=== PATIENT | female | born 1960 | race Caucasian/White ===

== ENCOUNTER 2017-12-21 18:00 | Emergency (ER) | payer SELFPAY ==
--- NOTE | 2017-12-21 18:13 | ER Report ---
History and Physical Time Seen By MD: 18:12 Hx. of Stated Complaint: "KIDNEY STONE" LEFT FLANK PAIN THAT STARTED ABOUT 2:30. THOUGHT SHE WAS FIGHTING A UTI HPI/ROS CHIEF COMPLAINT: left flank pain HISTORY OF PRESENT ILLNESS: This is a 57 year old female. She had left flank pain, severe, started 1430 today. Has had some nausea, and a few episodes of vomiting. Pain worsens with moving and standing. No fevers. Has some pain with urination, but no blood or dark color. Drinking increased fluids today. Never had a kidney stone in the past. Pain does radiate around to left lower area a little. No problems with bowels. Allergies: Coded Allergies: Sulfa (Sulfonamide Antibiotics) (Verified Allergy, Intermediate, 12/21/17) RASH, CLOSED UP THROAT Home Meds Active Scripts Ondansetron (ZOFRAN ODT) 4 Mg Tab.rapdis, 4 MG PO Q6H Y for NAUSEA/VOMITING, # 20 TAB.OMAR 0 Refills Prov:MIRIAM MARIE MD 12/21/17 Ketorolac Tromethamine (KETOROLAC TROMETHAMINE) 10 Mg Tab, 10 MG PO Q6H Y for PAIN, #12 TAB 0 Refills Prov:MIRIAM MARIE MD 12/21/17 Oxycodone Hcl/Acetaminophen (PERCOCET 5-325 MG TABLET) 1 Each Tablet, 1 EACH PO Q4H Y for PAIN, #12 TAB 0 Refills Prov:MIRIAM MARIE MD 12/21/17 Tamsulosin Hcl (FLOMAX) 0.4 Mg Cap.er.24h, 0.4 MG PO QDAY, #14 CAP 0 Refills Prov:MIRIAM MARIE MD 12/21/17 Reviewed Nurses Notes: Yes Constitutional Vital Sign - Last 24 Hours 12/21/17 12/21/17 12/21/17 12/21/17 18:07 18:08 18:15 18:30 Temp 98.1 Pulse 84 77 91 Resp 16 B/P (MAP) 144/101 144/101 (115) 144/90 (108) Pulse Ox 99 99 100 O2 Delivery Room Air 12/21/17 12/21/17 12/21/17 12/21/17 18:45 18:47 19:14 19:20 Pulse 77 72 B/P (MAP) 124/73 (90) Pulse Ox 100 99 O2 Flow Rate 2.0 12/21/17 12/21/17 12/21/17 12/21/17 19:30 19:35 19:50 20:00 Pulse 81 B/P (MAP) 123/72 (89) 129/73 (91) Pulse Ox 100 98 Intake and Output 12/21/17 12/21/17 12/22/17 15:00 23:00 07:00 Intake Total 1000 ml Balance 1000 ml Physical Exam General Appearance: The patient is alert, no acute distress. Eyes: Pupils equal and round ENT: Normal oral mucosa. Moist mucous membranes. Respiratory: Lungs are clear to auscultation. Cardiac: regular rate and rhythm, without murmurs. Gastrointestinal: Abdomen is soft and non tender, bowel sounds normal, left CVA tenderness. Musculoskeletal: Extremities have full range of motion. DIFFERENTIAL DIAGNOSIS: After history and physical exam differential diagnosis was considered for left flank pain. Medical Decision Making Data Points Result Diagram: 12/21/17 1845 12/21/17 1845 Laboratory Hematology Test 12/21/17 18:04 12/21/17 18:45 Urine Color Yellow Urine Clarity Cloudy Urine pH 5.0 pH (4.8-9.5) Urine Specific [place] 1.023 Urine Protein Negative mg/dL (NEGATIVE) Urine Glucose (UA) Negative mg/dL (NEGATIVE) Urine Ketones 80 mg/dL (NEGATIVE) Urine Blood Negative (NEGATIVE) Urine Nitrite Negative (NEGATIVE) Urine Bilirubin Negative (NEGATIVE) Urine Urobilinogen Negative mg/dL (0.2-1.9) Urine Leukocyte Esterase Moderate (NEGATIVE) Urine RBC 9 /HPF (0-2/HPF) Urine WBC 32 /HPF (0-5/HPF) Urine Squamous Epithelial Cells Many /LPF (</=FEW) Urine Calcium Oxalate Crystals Many /HPF (NONE) Urine Bacteria Negative /HPF (NONE-FEW) Urine Hyaline Casts Few /LPF (NONE-FEW) Urine Mucus None /HPF (NONE-FEW) Red Blood Count 4.34 M/uL (4.17-5.56) Mean Corpuscular Volume 88.3 fL (80.0-96.0) Mean Corpuscular Hemoglobin 30.9 pg (26.0-33.0) Mean Corpuscular Hemoglobin Concent 35.0 g/dL (32.0-36.0) Red Cell Distribution Width 13.0 % (11.5-14.5) Mean Platelet Volume 7.7 fL (7.2-11.1) Neutrophils (%) (Auto) 84.5 % (39.4-72.5) Lymphocytes (%) (Auto) 9.8 % (17.6-49.6) Monocytes (%) (Auto) 4.9 % (4.1-12.4) Eosinophils (%) (Auto) 0.1 % (0.4-6.7) Basophils (%) (Auto) 0.7 % (0.3-1.4) Nucleated RBC Relative Count (auto) 0.0 /100WBC Neutrophils # (Auto) 9.1 K/uL (2.0-7.4) Lymphocytes # (Auto) 1.1 K/uL (1.3-3.6) Monocytes # (Auto) 0.5 K/uL (0.3-1.0) Eosinophils # (Auto) 0.0 K/uL (0.0-0.5) Basophils # (Auto) 0.1 K/uL (0.0-0.1) Nucleated RBC Absolute Count (auto) 0.00 K/uL Sodium Level 137 mmol/L (137-145) Potassium Level 3.3 mmol/L (3.5-5.0) Chloride Level 102 mmol/L (98-107) Carbon Dioxide Level 22 mmol/L (22-31) Blood Urea Nitrogen 12 mg/dl (7-18) Creatinine 0.70 mg/dl (0.52-1.04) Glomerular Filtration Rate Calc > 60.0 Random Glucose 93 mg/dl (75-110) Calcium Level 8.9 mg/dl (8.4-10.2) Total Bilirubin 0.2 mg/dl (0.2-1.3) Aspartate Amino Transf (AST/SGOT) 31 U/L (0-35) Alanine Aminotransferase (ALT/SGPT) 45 U/L (0-56) Alkaline Phosphatase 94 U/L (0-126) Total Protein 6.6 gm/dl (6.3-8.2) Albumin 3.7 g/dl (3.5-5.0) Chemistry Test 12/21/17 18:04 12/21/17 18:45 Urine Color Yellow Urine Clarity Cloudy Urine pH 5.0 pH (4.8-9.5) Urine Specific [place] 1.023 Urine Protein Negative mg/dL (NEGATIVE) Urine Glucose (UA) Negative mg/dL (NEGATIVE) Urine Ketones 80 mg/dL (NEGATIVE) Urine Blood Negative (NEGATIVE) Urine Nitrite Negative (NEGATIVE) Urine Bilirubin Negative (NEGATIVE) Urine Urobilinogen Negative mg/dL (0.2-1.9) Urine Leukocyte Esterase Moderate (NEGATIVE) Urine RBC 9 /HPF (0-2/HPF) Urine WBC 32 /HPF (0-5/HPF) Urine Squamous Epithelial Cells Many /LPF (</=FEW) Urine Calcium Oxalate Crystals Many /HPF (NONE) Urine Bacteria Negative /HPF (NONE-FEW) Urine Hyaline Casts Few /LPF (NONE-FEW) Urine Mucus None /HPF (NONE-FEW) White Blood Count 10.8 k/uL (4.5-11.0) Red Blood Count 4.34 M/uL (4.17-5.56) Hemoglobin 13.4 g/dL (12.0-16.0) Hematocrit 38.3 % (34.0-47.0) Mean Corpuscular Volume 88.3 fL (80.0-96.0) Mean Corpuscular Hemoglobin 30.9 pg (26.0-33.0) Mean Corpuscular Hemoglobin Concent 35.0 g/dL (32.0-36.0) Red Cell Distribution Width 13.0 % (11.5-14.5) Platelet Count 223 K/uL (150-450) Mean Platelet Volume 7.7 fL (7.2-11.1) Neutrophils (%) (Auto) 84.5 % (39.4-72.5) Lymphocytes (%) (Auto) 9.8 % (17.6-49.6) Monocytes (%) (Auto) 4.9 % (4.1-12.4) Eosinophils (%) (Auto) 0.1 % (0.4-6.7) Basophils (%) (Auto) 0.7 % (0.3-1.4) Nucleated RBC Relative Count (auto) 0.0 /100WBC Neutrophils # (Auto) 9.1 K/uL (2.0-7.4) Lymphocytes # (Auto) 1.1 K/uL (1.3-3.6) Monocytes # (Auto) 0.5 K/uL (0.3-1.0) Eosinophils # (Auto) 0.0 K/uL (0.0-0.5) Basophils # (Auto) 0.1 K/uL (0.0-0.1) Nucleated RBC Absolute Count (auto) 0.00 K/uL Glomerular Filtration Rate Calc > 60.0 Calcium Level 8.9 mg/dl (8.4-10.2) Total Bilirubin 0.2 mg/dl (0.2-1.3) Aspartate Amino Transf (AST/SGOT) 31 U/L (0-35) Alanine Aminotransferase (ALT/SGPT) 45 U/L (0-56) Alkaline Phosphatase 94 U/L (0-126) Total Protein 6.6 gm/dl (6.3-8.2) Albumin 3.7 g/dl (3.5-5.0) Urinalysis Test 12/21/17 18:04 Urine Color Yellow Urine Clarity Cloudy Urine pH 5.0 pH (4.8-9.5) Urine Specific [place] 1.023 Urine Protein Negative mg/dL (NEGATIVE) Urine Glucose (UA) Negative mg/dL (NEGATIVE) Urine Ketones 80 mg/dL (NEGATIVE) Urine Blood Negative (NEGATIVE) Urine Nitrite Negative (NEGATIVE) Urine Bilirubin Negative (NEGATIVE) Urine Urobilinogen Negative mg/dL (0.2-1.9) Urine Leukocyte Esterase Moderate (NEGATIVE) Urine RBC 9 /HPF (0-2/HPF) Urine WBC 32 /HPF (0-5/HPF) Urine Squamous Epithelial Cells Many /LPF (</=FEW) Urine Calcium Oxalate Crystals Many /HPF (NONE) Urine Bacteria Negative /HPF (NONE-FEW) Urine Hyaline Casts Few /LPF (NONE-FEW) Urine Mucus None /HPF (NONE-FEW) EKG/Imaging Imaging EXAMINATION: CT abdomen and pelvis with contrast COMPARISON: None. HISTORY: Left flank pain. PROCEDURE: Multiplanar contrast enhanced CT of the abdomen and pelvis with 75 mL intravenous Isovue 370. One of the following dose optimization techniques was utilized in the performance of this exam: Automated exposure control; adjustment of the mA and/or kV according to the patient's size; or use of an iterative reconstruction technique. Specific details can be referenced in the facility's radiology CT exam operational policy. FINDINGS: Visualized thorax: Negative. Liver: Negative. Gallbladder and biliary system: Negative Spleen: Spleen size is normal. Pancreas: Pancreatic parenchyma enhances homogeneously. There is a small amount of fluid along the pancreatic tail in close proximity to the left kidney. Adrenal glands: Negative. Kidneys and bladder: Mild left kidney hydronephrosis due to a 3 mm stone in the distal left ureter approximately 1.5 cm from the ureterovesical junction. Small amount of low-attenuation ill-defined perinephric fluid. Mildly delayed enhancement of the left renal parenchyma but no focal region of parenchymal edema. Right kidney is unremarkable. Urinary bladder is unremarkable. Vessels: Within normal limits. Bowel and mesentery: Stomach is within normal limits. No small bowel obstruction. Appendix is unremarkable. Small amount of stool within the colon. No bowel or mesenteric inflammation. Pelvic organs: Hysterectomy. No adnexal mass. Lymph nodes: No adenopathy. Free air/free fluid: Left perinephric fluid is noted above. No other abdominopelvic fluid collection. No pneumoperitoneum. Abdominal wall and osseous structures: Abdominal wall is intact. L5-S1 moderate degenerative disc disease. IMPRESSION: 1. Mild left-sided hydronephrosis due to a 3 mm obstructing stone in the distal left ureter. 2. Small amount of left perinephric free fluid is likely from forniceal rupture. Report Dictated By: Mario Tolentino MD at 12/21/2017 7:27 PM ED Course/Re-evaluation Clinical Indication for ER IV: Hydration, IV Access ED Course Mild improvement with Morphine 4mg IVP. Zofran 4mg IVP for nausea. CT scan obtained and pain worsened. Gave Dilaudid 1mg IV with excellent results. Reviewed the CT results with our urologist, Dr. Jc. The patient is controlled on medications and would like to go home. 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 Provided Flomax, Percocet , Toradol and Zofran for outpatient use. Decision to Disposition Date: Dec 21, 2017 Decision to Disposition Time: 19:56 Depart Departure Latest Vital Signs Vital Signs Date Time Temp Pulse Resp B/P (MAP) Pulse Ox O2 Delivery O2 Flow Rate FiO2 12/21/17 20:00 129/73 (91) 12/21/17 19:50 98 12/21/17 19:35 81 12/21/17 18:47 2.0 12/21/17 18:07 98.1 16 Room Air Impression: Primary Impression: Kidney stone on left side Condition: Improved Disposition: HOME OR SELF-CARE New Scripts Ondansetron (ZOFRAN ODT) 4 Mg Tab.rapdis 4 MG PO Q6H Y for NAUSEA/VOMITING, #20 TAB.OMAR 0 Refills Prov: MIRIAM MARIE MD 12/21/17 Ketorolac Tromethamine (KETOROLAC TROMETHAMINE) 10 Mg Tab 10 MG PO Q6H Y for PAIN, #12 TAB 0 Refills Prov: MIRIAM MARIE MD 12/21/17 Oxycodone Hcl/Acetaminophen (PERCOCET 5-325 MG TABLET) 1 Each Tablet 1 EACH PO Q4H Y for PAIN, #12 TAB 0 Refills Prov: MIRIAM MARIE MD 12/21/17 Tamsulosin Hcl (FLOMAX) 0.4 Mg Cap.er.24h 0.4 MG PO QDAY, #14 CAP 0 Refills Prov: MIRIAM MARIE MD 12/21/17 Patient Instructions: Kidney Stones (ED) Additional Instructions: Rest and increase fluid intake. For pain you can use: Percocet 5/325, take 1-2 every 4 hours as needed for pain. Toradol 10mg, one every 6 hours as needed for pain. For Nausea: Zofran 4mg, one every 4-6 hours as needed for nausea. To help the stone to pass and to help decrease swelling and pain in the urinary system after the stone passes, we recommend using Flomax 0.4mg one daily for the next couple of weeks. MIRIAM MARIE MD Dec 21, 2017 18:12
[2017-12-21] MEDS ORDERED: ONDANSETRON 4 MG/2 ML VIAL IVP ONE (18:25)
[2017-12-21] MEDS ORDERED: MORPHINE 4 MG/ML SDV IVP ONE (18:25)
[2017-12-21] MEDS ORDERED: NS(*) 0.9% 1000 ML BAG 1,000 ML IV ONE (18:25)
[2017-12-21] MEDS ORDERED: IOPAMIDOL 76% 75 ML INFUS BTL 75 ML ONE (18:45)
[2017-12-21 18:54] LABS: PLATELET COUNT, AUTOMATED 223 K/uL (150-450)
[2017-12-21] MEDS ORDERED: HYDROmorphone(ER ONLY) 1 MG/ML IVP ONE (19:05)
[2017-12-21] MEDS ORDERED: HYDROmorphone(ER ONLY) 1 MG/ML ONE (19:11)
--- NOTE | 2017-12-21 19:38 | RADIOLOGY IMAGING REPORT ---
FACILITY: [facility] PATIENT NAME: Adelaida Haji : 1960 MR: [id number] V: [id number] EXAM DATE: ORDERING PHYSICIAN: MIRIAM MARIE TECHNOLOGIST: Location: [facility] [place] Patient: Adelaida Haji : 1960 Visit/Account:[id number] Date of Sevice: 12/21/2017 EXAMINATION: CT abdomen and pelvis with contrast COMPARISON: None. HISTORY: Left flank pain. PROCEDURE: Multiplanar contrast enhanced CT of the abdomen and pelvis with 75 mL intravenous Isovue 3 70. One of the following dose optimization techniques was utilized in the performance of this exam: A utomated exposure control; adjustment of the mA and/or kV according to the patient's size; or use of an iterative reconstruction technique. Specific details can be referenced in the facility's radiolo gy CT exam operational policy. FINDINGS: Visualized thorax: Negative. Liver: Negative. Gallbladder and biliary system: Negative Spleen: Spleen size is normal. Pancreas: Pancreatic parenchyma enhances homogeneously. There is a small amount of fluid along the pa ncreatic tail in close proximity to the left kidney. Adrenal glands: Negative. Kidneys and bladder: Mild left kidney hydronephrosis due to a 3 mm stone in the distal left ureter ap proximately 1.5 cm from the ureterovesical junction. Small amount of low-attenuation ill-defined brenna nephric fluid. Mildly delayed enhancement of the left renal parenchyma but no focal region of parench ymal edema. Right kidney is unremarkable. Urinary bladder is unremarkable. Vessels: Within normal limits. Bowel and mesentery: Stomach is within normal limits. No small bowel obstruction. Appendix is unrem arkable. Small amount of stool within the colon. No bowel or mesenteric inflammation. Pelvic organs: Hysterectomy. No adnexal mass. Lymph nodes: No adenopathy. Free air/free fluid: Left perinephric fluid is noted above. No other abdominopelvic fluid collection. No pneumoperitoneum. Abdominal wall and osseous structures: Abdominal wall is intact. L5-S1 moderate degenerative disc dis ease. IMPRESSION: 1. Mild left-sided hydronephrosis due to a 3 mm obstructing stone in the distal left ureter. 2. Small amount of left perinephric free fluid is likely from forniceal rupture. Report Dictated By: Mario Tolentino MD at 12/21/2017 7:27 PM Report E-Signed By: Mario Tolentino MD at 12/21/2017 7:35 PM WSN:[id number]
[2017-12-21] MEDS ORDERED: TAMSULOSIN HCL 0.4 MG CAP PO ONE ×2 (19:55→20:00)
[2017-12-21] MEDS ORDERED: KETOROLAC 30 MG/ML VIAL IVP ONE (19:55)
[2017-12-21] MEDS ORDERED: TAMS0.4C25 PO (19:58)
[2017-12-21] MEDS ORDERED: OXYC-865 PO (19:58)
[2017-12-21] MEDS ORDERED: ONDA4TAB PO (19:58)
[2017-12-21] MEDS ORDERED: KET10 PO (19:58)
[2017-12-21 20:00] VITALS: BP 129/73
[2017-12-21] MEDS ORDERED: ONDANSETRON 4 MG ODT TH SL ONE (20:00)
[2017-12-21] MEDS ORDERED: KETOROLAC TROM 10MG TAB PO ONE (20:00)
[2017-12-21] MEDS ORDERED: oxyCODONE/ACETAMIN 5/325MG TH 2 TAB/BOTTLE PO ONE (20:00)
[2017-12-21] MEDS ORDERED: ONDANSETRON 4 MG ODT TABDP SL ONE (20:00)
[2017-12-21] MEDS ORDERED: KETOROLAC TROM 10 MG TAB TH PO ONE (20:00)
== END 2017-12-21 20:22 | disposition home or self-care (01) ==
LOC: ER 18:09
DX: N20.0 Calculus of kidney (principal)
CPT/HCPCS: 36415; 74177; 81001; 85025; 96361; 96374; 96375; 99284; J1170; J2270; J2405; J7030; Q9967; S0119; 82040; 82247; 82310; 82374; 82435; 82565; 82947; 84075; 84132; 84155; 84295; 84450; 84460; 84520